=== PATIENT | female | born 1995 | race Caucasian/White ===

== ENCOUNTER 2017-08-30 12:23 | Emergency (ER) | payer BC, OTHER ==
[~2017-08-30] VITALS: Ht 175.3 cm; Wt 54.5 kg
[2017-08-30 12:26] VITALS: BP 137/63; PULSE 105; RESP 18; TEMP 98.2; O2SAT 96
[2017-08-30 13:49] LABS: AUTOMATED NEUTROPHIL # 3.4 TH/MM3 (1.8-7.7); BASOPHIL # 0.1 TH/MM3 (0-0.2); BASOPHIL % 1.2 % (0.0-2.0); EOSINOPHIL # 0.1 TH/MM3 (0-0.4); EOSINOPHIL % 1.1 % (0.0-4.0); HEMATOCRIT 37.6 % (35.0-46.0); HEMOGLOBIN 12.7 GM/DL (11.6-15.3); LYMPH % 31.7 % (9.0-44.0); LYMPHOCYTE # 2.1 TH/MM3 (1.0-4.8); MEAN CELL VOLUME 87.1 FL (80.0-100.0); MEAN CORPUSCULAR HEMOGLOBIN 29.4 PG (27.0-34.0); MEAN CORPUSCULAR HGB CONC 33.7 % (32.0-36.0); MONO % 13.3 % (0.0-8.0); MONOCYTE # 0.9 TH/MM3 (0-0.9); NEUT % 52.7 % (16.0-70.0); PLATELET COUNT 234 TH/MM3 (150-450); RED BLOOD COUNT 4.32 MIL/MM3 (4.00-5.30); RED CELL DISTRIBUTION WIDTH 12.8 % (11.6-17.2); WHITE BLOOD COUNT 6.5 TH/MM3 (4.0-11.0)
[2017-08-30 14:02] LABS: BICARBONATE 26.1 MEQ/L (21.0-32.0); CALCIUM 8.9 MG/DL (8.5-10.1); CREATININE 0.82 MG/DL (0.50-1.00)
[2017-08-30] MEDS ORDERED: ADDE10 PO (14:20)
--- NOTE | 2017-08-30 15:23 | PD ---
HPI Chief Complaint: Skin Problem Time Seen by Provider: 14:15 Travel History International Travel<30 days: No Contact w/Intl Traveler<30days: No Traveled to known affect area: No History of Present Illness HPI The patient was seen and examined in the presence of the nurse. This patient complains of pain in the right elbow area. Duration one week. She denies injury. She has pain when extending her arm. No fever. No alleviating factors. Pain exacerbated by straightening her arm. She denies IV drug use. PFSH Past Medical History Hx Anticoagulant Therapy: No Autoimmune Disease: Yes (hoshimoto ) Anxiety: No Depression: No Cardiovascular Problems: No Chemotherapy: No Cerebrovascular Accident: No Diabetes: No Diminished Hearing: No Genitourinary: No Headaches: Yes (s/p spinal tap) Musculoskeletal: Yes (pain in legs, back and muscle spasms) Neurologic: Yes Psychiatric: No Respiratory: No Immunizations Current: Yes Thyroid Disease: Yes (THYROIDITIS) ?: Not LMP: 08/16/2017 Past Surgical History Hysterectomy: No Oral Surgery: Yes (2002 TONSILLECTOMY) Tonsillectomy: Yes (ADNOIDS) Other Surgery: Yes (t and a 2002) Social History Alcohol Use: No Tobacco Use: No Substance Use: Yes (marijuana occ) Allergies-Medications (Allergen,Severity, Reaction): Coded Allergies: bee venom protein (honey bee) (Unverified Allergy, Severe, SWELLING, ) mushroom (Unverified Allergy, Intermediate, TONGUE SWELLING, 08/30/17) lactose (Unverified Adverse Reaction, Mild, UP SET STOMACHE, 08/30/17) Reported Meds & Prescriptions Reported Meds & Active Scripts Active Reported Adderall (Amphetamine-Dextroamphetamine) 10 Mg Tab 10 Mg PO BID Avoid late evening doses. Space doses at least 4 to 6 hours if more than once/day dosing. Review of Systems General / Constitutional: No: Fever Eyes: No: Visual changes HENT: No: Headaches Cardiovascular: No: Chest Pain or Discomfort Respiratory: No: Shortness of Breath Gastrointestinal: No: Abdominal Pain Genitourinary: No: Dysuria Musculoskeletal: Positive: Myalgias, Arthralgias, Limited ROM, Pain Skin: No Rash Neurologic: No: Weakness Psychiatric: No: Depression Endocrine: No: Polydipsia Hematologic/Lymphatic: No: Easy Bruising Physical Exam Narrative SKIN: Focused skin assessment reveals no rash or ulcers. Skin is warm and dry. Palpation shows no induration or nodules. GASTROINTESTINAL: Abdomen soft, non-tender, nondistended. Positive bowel sounds. No hepato-splenomegaly, or palpable masses. No guarding. Right arm: Patient has a asymmetry to the right bicep when compared to the left. There is an indented area. There is a 2 cm x 2 cm tender nodule to the medial aspect of the distal bicep. She has pain when extending the arm. She can flex without pain. There is no redness or warmth or fluctuance or drainage. No bruising. No bony tenderness. Data Data Last Documented VS Vital Signs Date Time Temp Pulse Resp B/P (MAP) Pulse Ox O2 Delivery O2 Flow Rate FiO2 08/30/17 12:26 98.2 105 18 137/63 (87) 96 Orders Orders Complete Blood Count With Diff (08/30/17 12:44) Basic Metabolic Panel (Bmp) (08/30/17 12:44) Splint Or Brace Apply/Monitor (08/30/17 14:29) Labs Laboratory Tests Test 08/30/17 13:05 White Blood Count 6.5 TH/MM3 Red Blood Count 4.32 MIL/MM3 Hemoglobin 12.7 GM/DL Hematocrit 37.6 % Mean Corpuscular Volume 87.1 FL Mean Corpuscular Hemoglobin 29.4 PG Mean Corpuscular Hemoglobin Concent 33.7 % Red Cell Distribution Width 12.8 % Platelet Count 234 TH/MM3 Mean Platelet Volume 8.0 FL Neutrophils (%) (Auto) 52.7 % Lymphocytes (%) (Auto) 31.7 % Monocytes (%) (Auto) 13.3 % Eosinophils (%) (Auto) 1.1 % Basophils (%) (Auto) 1.2 % Neutrophils # (Auto) 3.4 TH/MM3 Lymphocytes # (Auto) 2.1 TH/MM3 Monocytes # (Auto) 0.9 TH/MM3 Eosinophils # (Auto) 0.1 TH/MM3 Basophils # (Auto) 0.1 TH/MM3 CBC Comment DIFF FINAL Differential Comment Blood Urea Nitrogen 11 MG/DL Creatinine 0.82 MG/DL Random Glucose 95 MG/DL Calcium Level 8.9 MG/DL Sodium Level 138 MEQ/L Potassium Level 3.9 MEQ/L Chloride Level 105 MEQ/L Carbon Dioxide Level 26.1 MEQ/L Anion Gap 7 MEQ/L Estimat Glomerular Filtration Rate 87 ML/MIN MDM Medical Decision Making Medical Screen Exam Complete: Yes Emergency Medical Condition: Yes Medical Record Reviewed: Yes Differential Diagnosis Biceps tendon rupture, biceps tear, soft tissue contusion, abscess Narrative Course I have reviewed the patient's electronic medical record. This does not seem infectious. There is no redness or warmth or fever. She has never injected herself. Does seem most consistent with a rupture of one of the biceps head tendons. I placed her in a sling Wrote her something for pain She will use anti-inflammatory medication She should get orthopedic follow-up Diagnosis Primary Impression: Injury of tendon of biceps Additional Instructions: The patient was warned about potential sedation for the medications they will receive on prescription. The patient was advised to follow up with their physician and return if they worsen. Follow-up with orthopedist Med/Other Pt SpecificInfo: Prescription(s) given Disposition: 01 DISCHARGE HOME Condition: Stable Pepito Flores MD Aug 30, 2017 15:23
[2017-08-30] MEDS ORDERED: TRAM50TA PO (15:24)
== END 2017-08-30 15:33 | disposition home or self-care (01) ==
LOC: NEPD 12:23
DX: S46.202A Unspecified injury of muscle, fascia and tendon of other parts of biceps, left arm, initial encounter (principal); E06.9 Thyroiditis, unspecified; X58.XXXA Exposure to other specified factors, initial encounter
CPT/HCPCS: 80048; 85025; 99283

== ENCOUNTER 2017-10-27 17:44 | Emergency (ER) | payer BC ==
[~2017-10-27] VITALS: Ht 175.3 cm; Wt 50.0 kg
[~2017-10-27 17:44] MED LIST: ADDE10 PO; TRAM50TA PO
[2017-10-27 18:09] VITALS: BP 131/82; PULSE 99; RESP 18; TEMP 99.1; O2SAT 99
== END 2017-10-27 18:03 | disposition left against medical advice (07) ==
LOC: NED 17:44
DX: Z04.1 Encounter for examination and observation following transport accident (principal)
CPT/HCPCS: 99281